=== PATIENT | female | born 1975 | race Caucasian/White ===

== ENCOUNTER → 2020-03-17 | Outpatient (CLI) | payer OTHER ==
[2005-12-05 07:00] VITALS: TEMP 98.4
[~2020-03-17] MED LIST: PRENATAL VITAMI1 TA5 PO; PROTONIX 40MG T40 MG PO; ZOFRAN 4MG T4 MG/TAB PO
== END ==
LOC: MHCPAIN 08:29
DX: M47.817 Spondylosis without myelopathy or radiculopathy, lumbosacral region (principal); M54.5 Low back pain; M53.3 Sacrococcygeal disorders, not elsewhere classified; G89.29 Other chronic pain; M54.16 Radiculopathy, lumbar region
CPT/HCPCS: G0463

== ENCOUNTER 2021-03-31 16:24 | Inpatient (IN) | payer OTHER ==
[~2021-03-31] VITALS: Ht 162.6 cm; Wt 80.9 kg
[2021-03-31 18:09] LABS: ALANINE AMINOTRANSFERASE 12 U/L (0-55); ALBUMIN 3.3 gm/dL (3.5-5.0); ALKALINE PHOSPHATASE 60 U/L (0-750); ANION GAP 13 mmol/L; AST,SGOT 18 U/L (5-34); BASO # 0.1 (0.0-0.2); BASO % 0.7 % (0.0-2.0); BILIRUBIN,TOTAL 0.3 mg/dL (0.2-1.2); BLOOD UREA NITROGEN 11 mg/dL (7-19); CALCIUM 9.7 mg/dL (8.4-10.2); CARBON DIOXIDE 24 mEq/L (22-29); CHLORIDE 103 mmol/L (98-107); CREATININE, serum 0.78 mg/dL (0.57-1.11); EOS # 0.4 (0.0-0.7); EOS % 4.4 % (0-4.0); GLUCOSE 114 mg/dL (70-99); GRAN # 7.3 (1.4-6.5); GRAN % 74.5 % (42.2-75.2); LYMPH # 1.4 (1.2-3.4); LYMPH % 14.4 % (20.0-51.0); MEAN CELL VOLUME 85 fl (80.0-100.0); MEAN CORPUSCULAR HGB CONC 32 g/dl (33.0-37.0); MONO # 0.6 (0.1-0.6); MONO % 5.7 % (1.7-9.3); PLATELET COUNT 377 K/mm3 (130-400); POTASSIUM 3.6 mmol/L (3.5-4.5); RED BLOOD COUNT 3.59 M/mm3 (4.10-5.30); SODIUM 140 mmol/L (136-145); TOTAL PROTEIN 7.5 gm/dL (6.2-8.1)
[2021-03-31 18:17] LABS: TROPONIN-I < 0.010 ng/mL (0.00-0.033)
[2021-03-31 18:24] LABS: INR 1.8 (0.8-3.0); PROTHROMBIN TIME 19.8 SECONDS (9.7-12.8)
[2021-03-31 18:40] LABS: HEMATOCRIT 30.5 % (37.0-47.0); HEMOGLOBIN 9.6 g/dl (12.5-16.0); MEAN CORPUSCULAR HEMOGLOBIN 27 pg (27.0-31.0)
[2021-03-31] MEDS ORDERED: LEXAPRO 10MG10 MG PO (22:39)
[2021-03-31] MEDS ORDERED: KLONOPIN 0.5MG0.5 MG PO (22:40)
[2021-03-31] MEDS ORDERED: PAMELOR 10MG10 MG PO (22:40)
[2021-03-31] MEDS ORDERED: XARELTO15 MG PO (22:41)
[2021-03-31] MEDS ORDERED: ZYRTEC 10MG10 MG PO (22:41)
[2021-03-31] MEDS ORDERED: MIRALAX PA17 GM/Dose PO (22:41)
[2021-03-31] MEDS ORDERED: NEXIUM 40MG40 MG PO (22:41)
[2021-03-31] MEDS ORDERED: FLONASEALLERGY NS (22:42)
[2021-04-01] VITALS (12 sets, daily range): BP systolic 98–112; BP diastolic 50–62; PULSE 72–88; TEMP 97.8–98.9
[2021-04-01] MEDS ORDERED: ZOFRAN 4MG T4 MG/TAB PO (00:48)
[2021-04-01] MEDS ORDERED: IMITREX50 MG PO (00:49)
--- NOTE | 2021-04-01 02:10 | NUR ---
PT ADMITTED TO THE UNIT. ADMISSION INTAKE AND ASSESSMENT COMPLETED. ORIENTED PT TO ROOM. DENIES ANY NEEDS. WILL CONTINUE TO MONITOR.
--- NOTE | 2021-04-01 05:35 | NUR ---
PT HAS A HEADACHE, PRN TYLENOL GIVEN PER MAR. DENIES ANY OTHER NEEDS. WILL CONTINUE TO MONITOR.
[2021-04-01 06:57] LABS: BASO # 0.1 (0.0-0.2); EOS # 0.6 (0.0-0.7); EOS % 8.2 % (0-4.0); GRAN # 4.1 (1.4-6.5); GRAN % 59.7 % (42.2-75.2); LYMPH # 1.5 (1.2-3.4); LYMPH % 22.2 % (20.0-51.0); MEAN CELL VOLUME 85 fl (80.0-100.0); MEAN CORPUSCULAR HGB CONC 31 g/dl (33.0-37.0); MEAN PLATELET VOLUME 10.4 fl (7.4-10.4); MONO # 0.6 (0.1-0.6); MONO % 8.5 % (1.7-9.3); PLATELET COUNT 291 K/mm3 (130-400); RED BLOOD COUNT 3.03 M/mm3 (4.10-5.30); REDCELL DISTRIBUTION WIDTH-CV 13.9 % (11.5-14.5)
[2021-04-01 06:59] LABS: HEMATOCRIT 25.6 % (37.0-47.0); MEAN CORPUSCULAR HEMOGLOBIN 26 pg (27.0-31.0)
--- NOTE | 2021-04-01 07:20 | NUR ---
NOTIFIED RADIOLOGIST OF CONSULT. INSTURCTED TO MAKE SURE THERE IS AN ORDER PUT IN.
[2021-04-01 07:30] LABS: CALCIUM 8.2 mg/dL (8.4-10.2); CREATININE, serum 0.7 mg/dL (0.57-1.11); POTASSIUM 3.8 mmol/L (3.5-4.5)
--- NOTE | 2021-04-01 08:30 | NUR ---
PT DENIES SOB, ON RA, HEPARIN AND FLUIDS INFUSING, PT AOX4, DENIES PAIN, ASSESSMENT PERFORMED, CONSENT OBTAINED FOR EGD/COLON IN AM. NO OTHER NEEDS
--- NOTE | 2021-04-01 12:50 | NUR ---
SW met with patient at bedside. She was a/o and stated she is and lives with her boyfriend, Yoav Zaman, and her 2 children in [place]. Yoav's contact # is [phone]. Patient does not have a POA agent but is interested in designating her mother as such. SW to provide POA form to patient. PCP is Dr. Dorian Bishop in [place]. Patient is normally independent but reports she borrowed her mother's walker to reduce the pain in her leg. She also has a shower chair. *D/C Plan: d/c home w/ no needs
--- NOTE | 2021-04-01 13:07 | NUR ---
Primary nurse was assisted with [phone] patient care by [employer] [facility] Student Juan Dorantes and [employer] [employer] Instructor Maddy Colbert MSN, RN.
--- NOTE | 2021-04-01 13:30 | NUR ---
SEE MERGE DOCUMENTATION FOR MEDICATION ADMINISTRATION TIMES AND INTRA/POST PROCEDURE SEDATION ASSESSMENTS.
--- NOTE | 2021-04-01 13:41 | NUR ---
First visit from the x ray developing machine operator. prayed with patient. No other needs right now.
--- NOTE | 2021-04-01 14:12 | NUR ---
PT RETURNED FROM PROCEDURE, DENIES PAIN, INSERTION SITE IN R FEMORAL SOFT TO PALPATION WITH NO OOZING, DRESSING CDI. POST OP VITALS ATTACHED TO PT. DR. HAZEL ORDERING HEPARIN TO RESTART 1500. CONFIRMED WITH JAYE THAT THEY WOULD WANT TO STOP HEPARIN AT MIDNIGHT FOR COLON/EGD.
--- NOTE | 2021-04-01 15:20 | NUR ---
HEPARIN HUNG ON PT AND ADJUSTED PER PROTOCOL WITH PTT VALUE. HEPARIN VERIFIED BY FATIMAH GILL.
--- NOTE | 2021-04-01 16:50 | NUR ---
PT REPORTING BLEEDING FROM FEMORAL SITE AFTER SITTING UP. PRESSURE HELD FOR 10 MIN AND OLD DRESSING REMOVED, FEM SITE HAD STOPPED OOZING AND WAS REDRESSED. ILIR CALLED AND ORDERED TO HOLD HEPARIN. YONATAN HUTSON NOTIFIED WHOM NOTIFIED DR. CEE AND HEPARIN PLACED ON HOLD. RESSESSED SITE AFTER BRINGING PT JELLO AND DRESSING CDI W/O DRAINAGE.
--- NOTE | 2021-04-01 17:35 | NUR ---
NO BLEEDING IN FEMORAL SITE, WAITING ON LEMON NEZ PERCE GATORADE TO START MIRALAX, ANTI NAUSEA MEDS GIVEN
--- NOTE | 2021-04-01 18:08 | NUR ---
PT REQUESTING PREPARATION H CREAM, AURELIO MESA GAVE ORDER.
[2021-04-01 18:39] LABS: HEMATOCRIT 26.1 % (37.0-47.0); HEMOGLOBIN 8.2 g/dl (12.5-16.0)
--- NOTE | 2021-04-01 21:13 | NUR ---
ALERT AND OX4. DENIES SOA UNLESS WALKING MILDLY. NO CHEST PAIN OR DIZZY. GROIN SITE TO RT SIDE C/D/I. HEP GTT ON HOLD PER DURING DAY SHIFT RN. NS AT 50ML. BOWEL PREP STARTED MIRALX CONSUMED W MINIMAL RESULTS. CALLED DR SCHREIBER ORDERED MAG CITRATE, GIVEN TO PT. WILL BE NPO AFTER MIDNIGHT FOR COLONSCOPY , CONSENTED. PM MEDS GIVEN. NEEDS MET.
[2021-04-02] VITALS (10 sets, daily range): BP systolic 99–115; BP diastolic 51–63; PULSE 68–91; TEMP 98.1–98.3
--- NOTE | 2021-04-02 00:42 | NUR ---
HAVING LIQ BOWEL MOVEMENTS. TUMS GIVEN FOR ACID REFLUX DUE TO MAG CITRATE. CONTINUES TO SIP ON MAG CITRATE.
--- NOTE | 2021-04-02 02:26 | NUR ---
PT C.O PAIN IN LEFT LOWER AND UPPER LEG, SWELLING NOTED TO UPPER THIGH AND IS PAINFUL TO WALK ON. AURELIO HUTSON NOTIFED. PT DOES STILL HAVE A CLOT AND CAN BE EXPECTED TO HAVE PAIN/MED ORDERED. UPDATING PT ON POC.
--- NOTE | 2021-04-02 03:47 | NUR ---
AURELIO CALLED TO COME LOOK AT PT LEFT LEG MORE PAINFUL AND SWOLLEN WITH DISCOLORED. CAN FEEL PULSES CHECKING W DOPPLER AND GIVING ADDITIONAL DOSE OF DILUDID 0.5MG.
--- NOTE | 2021-04-02 04:03 | NUR ---
DOPPLER POSITIVE PEDAL PULSE TO LEFT LEG. DILUDID GIVEN. RESTARTED HEPARIN PER PROTOCOL PER AURELIO ORDER. PT ON BEDPAN SHE IS UNABLE TO GET UP. BM LOOSE LIQ AND CLEARING UP SOME.
--- NOTE | 2021-04-02 04:57 | NUR ---
NASREEN WRAP LEFT LOWER LEG AND ELEVATED ON PILLOW. WILL CONSULT INTERVENTIONAL RADIOLOGY THIS AM. NORCO GIVEN FOR PAIN. AURELIO LEAVES BEDSIDE AFTER SEEING AND PLACING ORDERS.
[2021-04-02 06:02] LABS: BASO # 0.1 (0.0-0.2); BASO % 0.9 % (0.0-2.0); EOS # 0.3 (0.0-0.7); EOS % 3.5 % (0-4.0); GRAN # 7.2 (1.4-6.5); GRAN % 81.6 % (42.2-75.2); LYMPH # 0.7 (1.2-3.4); LYMPH % 7.9 % (20.0-51.0); MEAN CELL VOLUME 86 fl (80.0-100.0); MEAN CORPUSCULAR HGB CONC 30 g/dl (33.0-37.0); MEAN PLATELET VOLUME 9.9 fl (7.4-10.4); MONO # 0.5 (0.1-0.6); MONO % 5.6 % (1.7-9.3); PLATELET COUNT 304 K/mm3 (130-400); RED BLOOD COUNT 3.16 M/mm3 (4.10-5.30)
[2021-04-02 06:04] LABS: HEMATOCRIT 27.3 % (37.0-47.0); HEMOGLOBIN 8.3 g/dl (12.5-16.0); MEAN CORPUSCULAR HEMOGLOBIN 26 pg (27.0-31.0)
[2021-04-02 06:15] LABS: INR 1.3 (0.8-3.0); PROTHROMBIN TIME 14.8 SECONDS (9.7-12.8)
[2021-04-02 06:18] LABS: PARTIAL THROMBOPLASTIN TIME 49.5 SECONDS (26.0-37.0)
[2021-04-02 06:21] LABS: CALCIUM 8.6 mg/dL (8.4-10.2); CREATININE, serum 0.74 mg/dL (0.57-1.11); POTASSIUM 3.7 mmol/L (3.5-4.5)
--- NOTE | 2021-04-02 08:04 | NUR ---
Pt down for EGD/Colonoscopy at shift change. Consult called to IR per order. Was told hospitalist needed to see pt and reevaluate.
--- NOTE | 2021-04-02 13:56 | NUR ---
Primary nurse was assisted with [phone] patient care by [employer] student Juan Dorantes and [facility] instructor Maddy Colbert MSN, RN
--- NOTE | 2021-04-02 14:51 | NUR ---
Pt assessment completed and charted, meds administered per aug. Pt A&O, on room air. Pt c/o pain to LLE, swelling to LLE has not increased throughout day, no discoloration noted, pulse difficult to find but palpable. Rt groin site from IVC filter CDI. Lt posterior knee site CDI. LLE wrapped w/ sumaya wrap. Pt received pain medication per aug as requested. Hep gtt continued, hep XA remains within goal. Significant other at bedside. No further requests at this time. Pt tolerating PO well.
--- NOTE | 2021-04-02 16:20 | NUR ---
Pt to transfer to , warehouse shipping clerk working on transfer paperwork. Pt requesting pain medication prior to leaving.
== END 2021-04-02 16:45 | disposition short-term general hospital (02) | DRG 176 ==
LOC: COL.ER 16:24 → MEDICAL 22:39
PROVIDERS: Internal Medicine Gastroenterology; Nurse Practitioner Family; Physician Assistant; ADMIT Student in an Organized Health Care Education/Training Program
PROC: 06H03DZ Insertion of Intraluminal Device into Inferior Vena Cava, Percutaneous Approach (ICD-10-PCS; 2021-04-01)
PROC: 3E0H8KZ Introduction of Other Diagnostic Substance into Lower GI, Via Natural or Artificial Opening Endoscopic (ICD-10-PCS; principal; 2021-04-02 07:00)
DX: I26.99 Other pulmonary embolism without acute cor pulmonale (principal); K92.2 Gastrointestinal hemorrhage, unspecified; K76.9 Liver disease, unspecified; F32.A Depression, unspecified; F41.9 Anxiety disorder, unspecified; K21.9 Gastro-esophageal reflux disease without esophagitis; G43.909 Migraine, unspecified, not intractable, without status migrainosus; K59.00 Constipation, unspecified; D64.9 Anemia, unspecified; F32.9 Major depressive disorder, single episode, unspecified; K63.9 Disease of intestine, unspecified; Z90.710 Acquired absence of both cervix and uterus; Z87.891 Personal history of nicotine dependence; Z63.5 Disruption of family by separation and divorce; Z86.718 Personal history of other venous thrombosis and embolism
CPT/HCPCS: 99223-AI; 99239; C1894; C9113; J0780; J1170; J1200; J1644; J2250; J2405; J2704; J2765; J3010; J7030; J7120; Q9967